=== PATIENT | male | born 1960 | race Caucasian/White ===

== ENCOUNTER → 2020-03-29 20:37 | Outpatient (ROUT) | payer BC, SELFPAY ==
[2020-03-29 21:33] LABS: Cholesterol 182 mg/dL (140-199); Glucose 95 mg/dL (70-100); HDL Cholesterol 55 mg/dL (40-60); LDL Cholesterol Calculated 95 mg/dL (<100); Triglycerides 162 mg/dL (35-150)
[2020-03-29 22:04] LABS: Prostate Specific Antigen 2.09 ng/mL (0.10-4.00)
== END ==
PROVIDERS: Family Provider Internal Medicine; PCP Internal Medicine; Visit Provider Internal Medicine
DX: E78.2 Mixed hyperlipidemia (principal); N40.0 Benign prostatic hyperplasia without lower urinary tract symptoms
CPT/HCPCS: 80061; 82947; 84153

== ENCOUNTER → 2021-06-14 15:19 | Outpatient (CLI) | payer BC, SELFPAY ==
[2021-06-14 16:22] LABS: Hematocrit 41.3 % (41-53); Hemoglobin 14.1 g/dL (13.5-17.5); Mean Corpuscular HGB Conc 34.1 % (30-36); Mean Corpuscular Hemoglobin 30.4 PG (26-34); Mean Corpuscular Volume 89.3 fL (80-100); Platelet Count 342 X10^3/uL (150-400); Red Blood Cell Count 4.63 X10^6/uL (4.5-5.9); Red Cell Distribution Width 14.1 % (11.6-14.8); White Blood Cell Count 9.9 X10^3/uL (4.5-11.0)
[2021-06-14 16:40] LABS: Alanine Aminotransferase 26 IU/L (<50); Albumin 4.4 g/dL (3.5-5.0); Albumin Globulin Ratio 1.4 (1.0-2.8); Alkaline Phosphatase 66 U/L (38-126); Aspartate Aminotransferase 36 IU/L (17-59); BUN Creatinine Ratio 16.7 (6-22); Bilirubin Total 0.4 mg/dL (0.2-1.3); Blood Urea Nitrogen 14 mg/dL (9-20); Calcium 8.8 mg/dL (8.4-10.2); Carbon Dioxide 27 mmol/L (22-32); Chloride 108 mmol/L (98-107); Cholesterol 181 mg/dL (140-199); Estimated Glomerular Filt Rate > 60 mL/min (>60); Globulin 3.2 g/dL (1.7-4.1); Glucose 80 mg/dL (80-110); HDL Cholesterol 61 mg/dL (40-60); HEMOLYSIS < 15 (0-50); LDL Cholesterol Calculated 96 mg/dL (<100); Potassium 4.4 mmol/L (3.4-5.1); Sodium 140 mmol/L (137-145); Total Protein 7.6 g/dL (6.3-8.2); Triglycerides 119 mg/dL (35-150)
[2021-06-14 17:08] LABS: Prostate Specific Antigen 2.55 ng/mL (0.10-4.00)
[2021-06-14 17:34] LABS: TSH w/ Reflex to FT4 1.01 uIU/mL (0.47-4.68)
== END ==
PROVIDERS: Family Provider Internal Medicine; PCP Internal Medicine; Referring Provider Internal Medicine; Visit Provider Internal Medicine
DX: E66.9 Obesity, unspecified (principal); N13.8 Other obstructive and reflux uropathy; N40.1 Benign prostatic hyperplasia with lower urinary tract symptoms; Z00.00 Encounter for general adult medical examination without abnormal findings
CPT/HCPCS: 36415; 80053; 80061; 84153; 84443; 85027

== ENCOUNTER → 2022-06-05 11:23 | Outpatient (CLI) | payer OTHER, SELFPAY ==
--- NOTE | 2022-06-05 11:26 | DI.RAD.S_ITS ---
PROCEDURE: XR HIP W PEL IF DONE RT 2V INDICATIONS: RIGHT HIP PAIN TECHNIQUE: 2 views of the hip were acquired. COMPARISON: None. FINDINGS: Bones: No fractures or dislocations. No suspicious bony lesions. The visualized pelvic ring appears intact. Mild bilateral hip and sacroiliac joint degeneration. Soft tissues: No suspicious soft tissue calcifications or masses. IMPRESSION: Mild degenerative joint disease. Dictated by: Hollis Mcginnis M.D. on 06/06/2022 at 11:34 Approved by: Hollis Mcginnis M.D. on 06/06/2022 at 11:34
== END ==
PROVIDERS: Family Provider Internal Medicine; PCP Internal Medicine; Referring Provider Internal Medicine; Visit Provider Internal Medicine
DX: M16.0 Bilateral primary osteoarthritis of hip (principal); M46.1 Sacroiliitis, not elsewhere classified
CPT/HCPCS: 73502

== ENCOUNTER → 2022-07-19 08:33 | Outpatient (CLI) | payer OTHER, SELFPAY ==
[2022-07-19 10:02] LABS: BUN Creatinine Ratio 13.4 (6-22); Blood Urea Nitrogen 11 mg/dL (9-20); Carbon Dioxide 27 mmol/L (22-32); Chloride 103 mmol/L (98-107); Cholesterol 189 mg/dL (140-199); Estimated Glomerular Filt Rate > 60 mL/min (>60); Glucose 84 mg/dL (80-110); HDL Cholesterol 63 mg/dL (40-60); HEMOLYSIS < 15 (0-50); LDL Cholesterol Calculated 102 mg/dL (<100); Potassium 4.9 mmol/L (3.4-5.1); Sodium 138 mmol/L (137-145); Triglycerides 122 mg/dL (35-150)
[2022-07-19 10:27] LABS: Prostate Specific Antigen Scrn 2.35 ng/mL (0.1-4.0)
== END ==
PROVIDERS: Family Provider Internal Medicine; PCP Internal Medicine; Referring Provider Internal Medicine; Visit Provider Internal Medicine
DX: E78.2 Mixed hyperlipidemia (principal); Z00.00 Encounter for general adult medical examination without abnormal findings; Z12.5 Encounter for screening for malignant neoplasm of prostate
CPT/HCPCS: 36415; 80048; 80061; G0103

== ENCOUNTER → 2024-07-26 08:39 | Outpatient (CLI) | payer OTHER, SELFPAY ==
[2024-07-26 09:08] LABS: Hematocrit 43.9 % (41-53); Hemoglobin 14.8 g/dL (13.5-17.5); Mean Corpuscular HGB Conc 33.8 % (30-36); Mean Corpuscular Hemoglobin 30.7 PG (26-34); Mean Corpuscular Volume 90.8 fL (80-100); Platelet Count 325 X10^3/uL (150-400); Red Blood Cell Count 4.84 X10^6/uL (4.5-5.9); Red Cell Distribution Width 13.7 % (11.6-14.8); White Blood Cell Count 8.3 X10^3/uL (4.5-11.0)
[2024-07-26 09:36] LABS: Aspartate Aminotransferase 29 IU/L (17-59); BUN Creatinine Ratio 19.8 (6-22); Blood Urea Nitrogen 16 mg/dL (9-20); Calcium 8.9 mg/dL (8.4-10.2); Carbon Dioxide 22 mmol/L (22-32); Chloride 107 mmol/L (98-107); Cholesterol 171 mg/dL (140-199); Estimated Glomerular Filt Rate > 60 mL/min (>60); Glucose 93 mg/dL (70-99); HDL Cholesterol 57 mg/dL (40-60); HEMOLYSIS < 15 (0-50); LDL Cholesterol Calculated 90 mg/dL (<100); Potassium 4.4 mmol/L (3.4-5.1); Sodium 136 mmol/L (137-145); Triglycerides 118 mg/dL (35-150)
[2024-07-26 09:54] LABS: TSH w/ Reflex to FT4 1.42 uIU/mL (0.47-4.68)
[2024-07-26 10:07] LABS: Prostate Specific Antigen Scrn 2.94 ng/mL (0.1-4.0)
[2024-07-26 10:10] LABS: Testosterone 371 ng/dL (71.8-623)
== END ==
PROVIDERS: PCP Internal Medicine; Referring Provider Internal Medicine; Visit Provider Internal Medicine
DX: Z12.5 Encounter for screening for malignant neoplasm of prostate (principal); E78.2 Mixed hyperlipidemia; R79.89 Other specified abnormal findings of blood chemistry
CPT/HCPCS: 36415; 80048; 80061; 84403; 84443; 84450; 85027; G0103

== ENCOUNTER 2024-08-25 07:22 | Day surgery (SDC) | payer OTHER, SELFPAY ==
[2024-08-25 07:41] VITALS: BP 136/83; PULSE 72; RESP 16; TEMP 36.2; O2SAT 95
[2024-08-25] MEDS: LACTATED RINGERS 1,000 ML 42 ML IV ×2 (07:50→09:00)
--- NOTE | 2024-08-25 08:51 | PM.HP.IH.1 ---
History of Present Illness History of Present Illness Date Patient Seen: 08/25/24 Chief complaint: Screening Colonoscopy Narrative: Ten year follow-up colonoscopy [facility] Medical History (Updated 07/26/24 @ 08:31 by Marlon Perez MD) Lethargy Eczematous dermatitis Mixed hyperlipidemia Osteoarthritis of right hip Elevated PSA Insomnia Obesity (BMI 30-39.9) BPH w urinary obs/LUTS Surgical History Anesthesia History of back surgery (~1997) Social History Smoking Status: Current every day smoker Meds Home Medications and Allergies Home Medications ?Medication ?Instructions ?Recorded ?Confirmed ?Type triamcinolone acetonide 0.1 % 1 applic topical BID PRN itching 08/04/23 07/26/24 Rx topical cream #80 grams sildenafil 50 mg tablet 50 mg PO DAILY PRN sexual activity 04/05/24 08/25/24 Rx #30 tabs alfuzosin 10 mg tablet,extended 10 mg PO DAILY #90 tabs 07/26/24 08/25/24 Rx release 24 hr rosuvastatin 10 mg tablet 10 mg PO DAILY #90 tabs 07/26/24 08/25/24 Rx Allergies Allergy/AdvReac Type Severity Reaction Status Date / Time No Known Drug Allergies Allergy Verified 08/25/24 07:35 Exam Vital Signs (past 8 hours): - 08/25/24 07:41 Temperature 97.1 F L Pulse Rate 72 Respiratory Rate 16 Blood Pressure 136/83 Pulse Oximetry 95 Oxygen Delivery Method Room Air Oxygen Delivery Method Room Air Narrative Exam Narrative: Oropharynx free of lesions Chest clear to auscultation percussion Cardiac exam reveals no S3 or murmur Assessment & Plan Assessment & Plan narrative: 10 year follow-up colonoscopy for colon cancer screening. Risks, benefits, alternatives have been explained. Time-Based Coding :: [TOTAL MINUTES] spent with patient and on the chart (including review of chart, obtaining history, exam, reviewing outside data, placing orders, documenting exam and treatment plan, and counseling patient) on [DATE]. PROFEE Chief Clerk Document charge(s): No
--- NOTE | 2024-08-25 08:53 | PM.OP.COLON ---
Operative Date/Time/Diagnoses Date of procedure: 08/25/24 Time of procedure: 09:19 Pre-op diagnosis: See indication and findings Post-op diagnosis: same Procedure & Clinicians Study performed: Ten year follow-up colonoscopy Same procedure(s) as scheduled: Yes Surgeon: Rona Pleitez Anesthesia Type: Other Procedure Notes Procedure in detail: After informed consent was obtained the patient was placed in left lateral decubitus position. Video colonoscope was placed in the rectum slowly advanced cecum. On slow withdrawal mucosa was carefully examined. The scope was removed. The patient tolerated procedure well. Complications none Sedation mac Findings 1. Extensive left-sided and sigmoid diverticulosis 2. Otherwise negative colonoscopy to cecum Patient should have follow-up colonoscopy in 10 years
[2024-08-25 09:19] VITALS: BP 127/79; PULSE 62; RESP 16; TEMP 36.8; O2SAT 94
[2024-08-25 09:24] VITALS: BP 132/78; PULSE 60; RESP 15; TEMP 36.7; O2SAT 96
== END 2024-08-25 09:40 | disposition home or self-care (01) ==
PROVIDERS: PCP Internal Medicine; Referring Provider Internal Medicine Gastroenterology; Visit Provider Internal Medicine Gastroenterology
PROC: 0DJD8ZZ Inspection of Lower Intestinal Tract, Via Natural or Artificial Opening Endoscopic (ICD-10-PCS; CPT 45378; principal; 2024-08-25 08:30)
DX: Z12.11 Encounter for screening for malignant neoplasm of colon (principal); F17.210 Nicotine dependence, cigarettes, uncomplicated; K57.30 Diverticulosis of large intestine without perforation or abscess without bleeding
CPT/HCPCS: 45378; J2704